=== PATIENT | female | born 1985 | race Caucasian/White ===

== ENCOUNTER 2022-02-11 08:13 | Inpatient (IN) ==
[2022-02-11] MEDS ORDERED: diphenhydrAMINE 50 MG/ML VIAL IV STA (08:29)
[2022-02-11] MEDS ORDERED: KETOROLAC TROMETHAMINE 15 MG/ML VIAL IV ONE (08:29)
[2022-02-11] MEDS ORDERED: SODIUM CHLORIDE 0.9% 1000ML 1,000 ML IV ONE (08:29)
[2022-02-11] MEDS ORDERED: PROCHLORPERAZINE 2 ML IV ONE (08:29)
--- NOTE | 2022-02-11 08:32 | Emergency Department Note ---
Impression & Plan Symptomatic anemia, Syncope, near, High serum chloride ED Provider Note NAME: RADHA NUNEZ AGE: 36 SEX: F : 1985 ARRIVES VIA: Walk-In INFORMANT: Patient ED PROVIDER(S): Ignacio Soto DO CHIEF COMPLAINT: near syncope HPI: Patient is a 36-year-old female who presents the ER for lightheadedness. She notes that she has been feeling weak and fatigued since August. Normally when she is up moving around this will occur several times a day. She denies a ny headache or change in vision. No chest pain. She does have some shortness of breath with feeling very fatigued when this occurs daily. Denies any belly pain, nausea, vomiting, or diarrhea. No dysuria, urgency, or frequency. She notes she was in the shower around 630-645 and felt lightheaded and almost passed out. She fell back against the wall but did not hit her head or neck and lowered her self to the ground. ROS: See above HPI for pertinent positives & negatives. A total of 10 systems reviewed and were otherwise negative. PAST MEDICAL HISTORY:See Below PAST SURGICAL HISTORY:See Below FAMILY HISTORY:See Below SOCIAL HISTORY:See Below HOME MEDICATIONS:See Below ALLERGIES:See Below VITALS:See Below PHYSICAL EXAMINATION: GENERAL: Sitting up in bed, alert, well appearing, well nourished, no distress, non-toxic EYE EXAM: normal conjunctiva. PERRL and EOM's intact. OROPHARYNX: no exudate, no erythema, lips, buccal mucosa, and tongue normal and mucous membranes are moist NECK: supple, no nuchal rigidity, no adenopathy, non-tender LUNGS: Clear to auscultation. Normal chest wall mechanics HEART: no murmurs, S1 normal and S2 normal RECTAL: hem neg ABDOMEN: abdomen soft, non-tender, normo-active bowel sounds, no masses, no rebound or guarding. UPPER EXTREMITIES: upper extremities are grossly normal. LOWER EXTREMITIES: No pitting edema. NEURO EXAM: Normal sensorium, cranial nerves II-XII intact, normal speech, no weakness of arms, no weakness of legs. No drift. Finger to nose intact. Gross sensation intact. Rapid alternating movements of upper extremities intact. [id number] intact. MEDICAL DECISION MAKING: Patient is a 36-year-old female who presents ER for near syncopal event. IV was established blood work was obtained. Hemoglobin was found to be 3.2. Rectal was heme-negative and performed with Hope RN at bedside by myself. Platelets were appropriate as well as white cells. D-dimer was negative. BMP with a chloride of 109. CO2 of 20. No elevation in BUN to suggest GI bleed. Troponin was negative. EKG nondiagnostic. Lipase TSH and alcohol were negative. COVID- negative. Patient was typed and crossed and ordered 4 units PRBCs. She was consented at bedside by myself. Patient was monitored closely discussed with ok otto for further work-up of her symptomatic anemia. Triage Nursing notes reviewed. Limited review of prior medical records performed Vital Signs: reviewed and remarkable for no significant abnormalities Differential diagnosis: Differential diagnosis includes etiologies such as vasovagal event, infection, hypoglycemia, electrolyte abnormalities, cardiac sources, intracerebral event, toxicologic, neurologic, as well as others were entertained. ER treatment provided: See below Diagnostics interpreted by me: ECG: Sinus rhythm rate 96 Normal axis No PVCs QTC 432 Cardiac Monitoring: An order was placed for continuous cardiac monitoring. The monitor shows a rate of 92 with sinus rhythm. Laboratory studies: As stated above and show below. Imaging studies: See below Consultation(s): Discussed with Dr. Jacqueline hernandez for further evaluation Procedures: none Critical Care: I have personally spent 35 minutes of critical care time in the direct management of this patient. This includes bedside care, interpretation of diagnostic studies, and testing, discussion with consultants, patient, and family members, and other required patient management activities. This 35 minutes is in excess of all separately billable procedures. Past Med/Surg History Social History Smoking Status: Never smoker Second Hand Exposure: No; Do You Dip or Chew Tobacco: No; Tobacco Cessation Education Requested by Patient: No Hx Alcohol Use: Yes Alcohol type: beer Hx Substance Use: No Preferred Language: Bahamian Communication Ability: Effective Consulting Technical Director Required: No Beliefs That Will Affect Care: None Current Living Situation: Significant Other Other Information That Helps Us Care for You: No Feels Safe at Home: Yes Safety Concerns: Feels Safe At This Time Assistive Devices: Contacts and Glasses Allergies Allergies Allergy/AdvReac Type Severity Reaction Status Date / Time No Known Allergies Allergy Unverified 02/11/22 11:10 Results & Data (ED) Vital Signs Vital Signs - 24 hr 02/11/22 08:21 02/11/22 09:10 02/11/22 09:20 Temperature 36.5 C Temperature Source Oral Pulse Rate 89 93 H 90 Respiratory Rate 18 12 17 Blood Pressure 124/62 Blood Pressure Mean 82 Pulse Oximetry 96 Oxygen Delivery Method Room Air Sepsis Recent Fever Within 48 Hours No Sepsis New/Unexplained Change in Mental Status No Sepsis Action Taken by Nursing No Action Required 02/11/22 09:30 02/11/22 09:40 02/11/22 09:50 Temperature Temperature Source Pulse Rate 84 113 H 105 H Respiratory Rate 18 22 16 Blood Pressure Blood Pressure Mean Pulse Oximetry Oxygen Delivery Method Sepsis Recent Fever Within 48 Hours Sepsis New/Unexplained Change in Mental Status Sepsis Action Taken by Nursing 02/11/22 10:00 02/11/22 10:08 02/11/22 10:08 Temperature Temperature Source Pulse Rate 91 H 92 H Respiratory Rate 16 12 Blood Pressure 119/80 Blood Pressure Mean 93 Pulse Oximetry Oxygen Delivery Method Sepsis Recent Fever Within 48 Hours Sepsis New/Unexplained Change in Mental Status Sepsis Action Taken by Nursing 02/11/22 10:10 02/11/22 10:20 02/11/22 10:30 Temperature Temperature Source Pulse Rate 83 96 H 93 H Respiratory Rate 16 17 19 Blood Pressure Blood Pressure Mean Pulse Oximetry 97 Oxygen Delivery Method Room Air Sepsis Recent Fever Within 48 Hours Sepsis New/Unexplained Change in Mental Status Sepsis Action Taken by Nursing 02/11/22 10:40 Temperature Temperature Source Pulse Rate 97 H Respiratory Rate 15 Blood Pressure Blood Pressure Mean Pulse Oximetry 94 Oxygen Delivery Method Room Air Sepsis Recent Fever Within 48 Hours Sepsis New/Unexplained Change in Mental Status Sepsis Action Taken by Nursing Laboratory Data Result diagrams: 02/11/22 10:43 02/11/22 08:59 Lab Results 02/11/22 02/11/22 02/11/22 Range/Units 08:59 08:59 08:59 WBC 6.45 (4.8-10.8) K/ul RBC 2.10 L (3.93-5.22) M/uL Hgb 3.3 L* (12.0-16.0) g/dl Hct 13.8 L* (34.1-44.9) % MCV 65.7 L (80.0-100.0) fL MCH 15.7 L (25.0-34.0) pg MCHC 23.9 L (32.0-36.0) g/dL RDW Std Deviation 52.7 H (36.4-46.3) fL RDW Coeff of Kenrick 22.6 H (11.5-14.5) % Plt Count 260 (130-400) K/uL MPV 10.2 (9.4-12.3) fL Immature Gran % (Auto) 0.5 % Neut % (Auto) 77.1 % Lymph % (Auto) 17.7 % [place] % (Auto) 4.0 % Eos % (Auto) 0.5 % Baso % (Auto) 0.2 % Neut # (Auto) 4.98 (1.4-6.5) K/uL Lymph # (Auto) 1.14 L (1.2-3.4) K/uL [place] # (Auto) 0.26 (0.24-0.82) K/uL Eos # (Auto) 0.03 (0-0.50) K/uL Baso # (Auto) 0.01 (0-0.2) K/uL Immature Gran # (Auto) 0.03 H (0.00-0.02) K/uL Absolute Nucleated RBC 0.06 H (0-0) K/uL Nucleated RBC % (auto) 0.9 % Polychromasia 1+ Hypochromasia Present Microcytosis Present Tear Drop Cells 1+ D-Dimer 330 (0-500) ug/L FEU Sodium 137 (136-145) mmol/L Potassium 3.5 (3.5-5.1) mmol/L Chloride 109 H (98-107) mmol/L Carbon Dioxide 20 L (21-32) mmol/L Anion Gap 8 (3-11) BUN 13 (6-23) mg/dl Creatinine 0.86 (0.6-1.2) mg/dl Est Cr Clr Drug Dosing 91.7 ml/min Est GFR ( Amer) 100.7 ml/min Est GFR (Non-Af Amer) 86.9 ml/min BUN/Creatinine Ratio 15.1 (10-20) Glucose 102 H (70-99(Fasting)) mg/dl Calcium 8.3 L (8.5-10.1) mg/dl Iron (35-150) mcg/dl TIBC Unsaturated IBC (155-355) mcg/dl Transferrin % Sat Ferritin (8-388) ng/ml Total Bilirubin 0.4 (0.2-1.0) mg/dl AST 23 (13-39) U/L ALT 16 (7-52) U/L Alkaline Phosphatase 72 (34-104) U/L Troponin I High Sens 11.0 (0-14) pg/ml Total Protein 5.8 L (6.0-8.3) gm/dl Albumin 3.6 (3.4-5.0) gm/dl Globulin 2.2 L (2.5-4.0) gm/dl Albumin/Globulin Ratio 1.6 (0.9-2) Lipase 21 (11-82) U/L TSH (0.300-4.500) uIu/ml Ethyl Alcohol mg/dL (<10.0) mg/dl Blood Type Blood Type Recheck Antibody Screen Crossmatch 02/11/22 02/11/22 02/11/22 Range/Units 08:59 08:59 10:11 WBC (4.8-10.8) K/ul RBC (3.93-5.22) M/uL Hgb (12.0-16.0) g/dl Hct (34.1-44.9) % MCV (80.0-100.0) fL MCH (25.0-34.0) pg MCHC (32.0-36.0) g/dL RDW Std Deviation (36.4-46.3) fL RDW Coeff of Kenrick (11.5-14.5) % Plt Count (130-400) K/uL MPV (9.4-12.3) fL Immature Gran % (Auto) % Neut % (Auto) % Lymph % (Auto) % [place] % (Auto) % Eos % (Auto) % Baso % (Auto) % Neut # (Auto) (1.4-6.5) K/uL Lymph # (Auto) (1.2-3.4) K/uL [place] # (Auto) (0.24-0.82) K/uL Eos # (Auto) (0-0.50) K/uL Baso # (Auto) (0-0.2) K/uL Immature Gran # (Auto) (0.00-0.02) K/uL Absolute Nucleated RBC (0-0) K/uL Nucleated RBC % (auto) % Polychromasia Hypochromasia Microcytosis Tear Drop Cells D-Dimer (0-500) ug/L FEU Sodium (136-145) mmol/L Potassium (3.5-5.1) mmol/L Chloride (98-107) mmol/L Carbon Dioxide (21-32) mmol/L Anion Gap (3-11) BUN (6-23) mg/dl Creatinine (0.6-1.2) mg/dl Est Cr Clr Drug Dosing ml/min Est GFR ( Amer) ml/min Est GFR (Non-Af Amer) ml/min BUN/Creatinine Ratio (10-20) Glucose (70-99(Fasting)) mg/dl Calcium (8.5-10.1) mg/dl Iron (35-150) mcg/dl TIBC Unsaturated IBC (155-355) mcg/dl Transferrin % Sat Ferritin (8-388) ng/ml Total Bilirubin (0.2-1.0) mg/dl AST (13-39) U/L ALT (7-52) U/L Alkaline Phosphatase (34-104) U/L Troponin I High Sens (0-14) pg/ml Total Protein (6.0-8.3) gm/dl Albumin (3.4-5.0) gm/dl Globulin (2.5-4.0) gm/dl Albumin/Globulin Ratio (0.9-2) Lipase (11-82) U/L TSH 2.502 (0.300-4.500) uIu/ml Ethyl Alcohol mg/dL < 10.0 (<10.0) mg/dl Blood Type O Positive Blood Type Recheck Antibody Screen NEGATIVE Crossmatch See Detail 02/11/22 02/11/22 02/11/22 Range/Units 10:28 10:43 10:43 WBC (4.8-10.8) K/ul RBC (3.93-5.22) M/uL Hgb 3.2 L* (12.0-16.0) g/dl Hct 13.0 L* (34.1-44.9) % MCV (80.0-100.0) fL MCH (25.0-34.0) pg MCHC (32.0-36.0) g/dL RDW Std Deviation (36.4-46.3) fL RDW Coeff of Kenrick (11.5-14.5) % Plt Count (130-400) K/uL MPV (9.4-12.3) fL Immature Gran % (Auto) % Neut % (Auto) % Lymph % (Auto) % [place] % (Auto) % Eos % (Auto) % Baso % (Auto) % Neut # (Auto) (1.4-6.5) K/uL Lymph # (Auto) (1.2-3.4) K/uL [place] # (Auto) (0.24-0.82) K/uL Eos # (Auto) (0-0.50) K/uL Baso # (Auto) (0-0.2) K/uL Immature Gran # (Auto) (0.00-0.02) K/uL Absolute Nucleated RBC (0-0) K/uL Nucleated RBC % (auto) % Polychromasia Hypochromasia Microcytosis Tear Drop Cells D-Dimer (0-500) ug/L FEU Sodium (136-145) mmol/L Potassium (3.5-5.1) mmol/L Chloride (98-107) mmol/L Carbon Dioxide (21-32) mmol/L Anion Gap (3-11) BUN (6-23) mg/dl Creatinine (0.6-1.2) mg/dl Est Cr Clr Drug Dosing ml/min Est GFR ( Amer) ml/min Est GFR (Non-Af Amer) ml/min BUN/Creatinine Ratio (10-20) Glucose (70-99(Fasting)) mg/dl Calcium (8.5-10.1) mg/dl Iron < 10 L (35-150) mcg/dl TIBC TNP Unsaturated IBC 495 H (155-355) mcg/dl Transferrin % Sat TNP Ferritin 1.8 L (8-388) ng/ml Total Bilirubin (0.2-1.0) mg/dl AST (13-39) U/L ALT (7-52) U/L Alkaline Phosphatase (34-104) U/L Troponin I High Sens (0-14) pg/ml Total Protein (6.0-8.3) gm/dl Albumin (3.4-5.0) gm/dl Globulin (2.5-4.0) gm/dl Albumin/Globulin Ratio (0.9-2) Lipase (11-82) U/L TSH (0.300-4.500) uIu/ml Ethyl Alcohol mg/dL (<10.0) mg/dl Blood Type Blood Type Recheck O Positive Antibody Screen Crossmatch Administered Medications Discontinued Medications Diphenhydramine HCl (Diphenhydramine 50 Mg/Ml Vial) 50 mg IV NOW STA Stop: 02/11/22 08:30 Last Admin: 02/11/22 08:50 Dose: Not Given Documented By: HG Sodium Chloride (Nss 1000ml) 1,000 mls @ 999 mls/hr IV .Q1H1M ONE Stop: 02/11/22 09:29 Last Admin: 02/11/22 09:23 Dose: 999 mls/hr Documented By: HG Prochlorperazine (Compazine) 2 mls @ 1 mls/min IV ONE ONE Stop: 02/11/22 08:30 Last Admin: 02/11/22 08:50 Dose: Not Given Documented By: HG Ketorolac Tromethamine (Ketorolac Tromethamine 15 Mg/Ml Vial) 15 mg IV NOW ONE Stop: 02/11/22 08:30 Last Admin: 02/11/22 08:50 Dose: Not Given Documented By: MOE Imaging Data Radiologist's Impression: Chest X-Ray 02/11/22 08:36 SINGLE VIEW CHEST CLINICAL HISTORY: Atypical chest pain. FINDINGS: An AP, portable, upright chest radiograph is obtained. No prior studies are available for comparison at the time of dictation. A hiatal hernia is noted. The cardiomediastinal silhouette is unremarkable. The lungs and pleural spaces are clear. No pneumothorax is seen. The bony thorax is grossly intact. IMPRESSION: 1. No active disease in the chest. 2. Hiatal hernia. ACT 112: Negative or not required by law. Electronically signed by: Moustapha Ruelas M.D. 02/11/2022 8:58 AM Discharge Plan Visit Data Chief Complaint: Weakness Stated Complaint: PASSED OUT, FATIGUE, SHAKY ED Provider: Ignacio Soto Discharge Problem: Symptomatic anemia, Syncope, near, High serum chloride Discharge Instructions Interventions: ED Discharge Assessment Last Done: 02/11/22 11:21
--- NOTE | 2022-02-11 08:59 | XRay Report ---
SINGLE VIEW CHEST CLINICAL HISTORY: Atypical chest pain. FINDINGS: An AP, portable, upright chest radiograph is obtained. No prior studies are available for c omparison at the time of dictation. A hiatal hernia is noted. The cardiomediastinal silhouette is unr emarkable. The lungs and pleural spaces are clear. No pneumothorax is seen. The bony thorax is grossl y intact. IMPRESSION: 1. No active disease in the chest. 2. Hiatal hernia. ACT 112: Negative or not required by law. Electronically signed by: Moustapha Ruelas M.D. 02/11/2022 8:58 AM
[2022-02-11 09:29] LABS: D Dimer 330 ug/L FEU (0-500)
[2022-02-11 09:52] LABS: Albumin Globulin Ratio 1.6 (0.9-2); Albumin Level 3.6 gm/dl (3.4-5.0); BUN Creatinine Ratio 15.1 (10-20); Bilirubin,Total 0.4 mg/dl (0.2-1.0); Calcium 8.3 mg/dl (8.5-10.1); Creatinine Clr Calc Pharmacy 91.7 ml/min; Est GFR (African American) 100.7 ml/min; Est GFR (Non-African American) 86.9 ml/min; Globulin 2.2 gm/dl (2.5-4.0); Potassium 3.5 mmol/L (3.5-5.1); Total Protein 5.8 gm/dl (6.0-8.3)
[2022-02-11] MEDS ORDERED: SODIUM CHLORIDE 0.9% 250 ML IV PRN (10:03)
[2022-02-11 10:20] LABS: Hematocrit (blood only) 13.8 % (34.1-44.9); Hemoglobin 3.3 g/dl (12.0-16.0); Mean Corpuscular Hemoglobin 15.7 pg (25.0-34.0); Mean Corpuscular Hgb Conc 23.9 g/dL (32.0-36.0); Mean Corpuscular Volume 65.7 fL (80.0-100.0); Mean Platelet Volume 10.2 fL (9.4-12.3); Nucleated RBC # (auto) 0.06 K/uL (0-0); Nucleated RBC % (auto) 0.9 %; Platelet Count 260 K/uL (130-400); RDW Coefficient of Variation 22.6 % (11.5-14.5); RDW Standard Deviation 52.7 fL (36.4-46.3); White Blood Count 6.45 K/ul (4.8-10.8)
[2022-02-11 10:28] LABS: Basophils # (auto) 0.01 K/uL (0-0.2); Basophils % (auto) 0.2 %; Eosinophils # (auto) 0.03 K/uL (0-0.50); Eosinophils % (auto) 0.5 %; Hypochromasia Present; Immature Granulocytes # (auto) 0.03 K/uL (0.00-0.02); Immature Granulocytes % (auto) 0.5 %; Lymphocytes # (auto) 1.14 K/uL (1.2-3.4); Lymphocytes % (auto) 17.7 %; Microcytosis Present; Monocytes # (auto) 0.26 K/uL (0.24-0.82); Neutrophils # (auto) 4.98 K/uL (1.4-6.5); Neutrophils % (auto) 77.1 %; Polychromasia 1+; Tear Drop Cells 1+
--- NOTE | 2022-02-11 10:32 | History & Physical Report ---
Date of Service February 11, 2022 Assessment & Plan (1) Anemia: Plan: -Hgb currently at 3.3 -admit to PCU/tele -Patient is currently afebrile, hemodynamically stable, and stable on RA -No signs of active bleeding, she was heme negative on HANNA[place] in the ED -At this time it appears the patient's anemia and symptoms of significant weakness/fatigue are most associate with chronic iron deficiency anemia, but other causes such as myelodysplastic syndrome, heavy menstrual periods, and lead poisoning cannot be ruled out at this time -Patient's CBC is showing a microcytic/hypochromic anemia, will continue the workup with iron studies, B12/folate levels, lead level, obtaining prior to first unit of PRBC's -Will obtain echo with patient's murmur and no known murmur previously, could be due to her current anemia -Will give 20 mg IV lasix and 2g IV calcium gluconate after the second unit of PRBCs, patient was educated on iwona signs/symptoms associated with transfusions and when to notify her nurse -Patient has been ordered 4 units of PRBC's by the ED (blood consent obtained), will get a post transfusion H&H after the 4th unit is complete and continue to monitor H&H q6h overnight -If patient is doing well tomorrow could start givnig IV venofer infusions to stabilize iron levels if workup continues to indicated iron deficiency anemia and could then be discharged on oral Iron with close follow-up -AM BMP (2) Generalized weakness: Plan: -Likely due to her current anemia and Hgb of 3.3 -Generalized weakness has been ongoing for the past 6 months and worsening -No actual LOC this am and no acute neuro defects on exam -Continue to monitor for improvement as her anemia is treated (3) Alcohol abuse: Plan: -States she normally drinks about 3-4 cans of High Noon (alcoholic [place]) daily, last drink was 02/08/22 -No signs of alcohol withdrawal at this time, patient denies previous issues with withdrawal when she stops drinking -Will continue to monitor for signs of withdrawal, communication order placed to contact covering provider if signs/symptoms of withdrawal are noted so CWSS can be initiated (4) Murmur: Plan: -Noted on exam today, patient denies a history of heart murmur -Could be due to her current severe anemia, troponin negative, no chest pain, and no ECG changes noted -Will obtain TTE to further evaluate -Continue to monitor with adequate treatment of her anemia Plan The patient was seen with an discussed with Dr. Jackson at the time of admission History of Present Illness Chief Complaint: Weakness Primary Care Provider: NO PCP Cee Amaro is a 36-year-old female scented with the ER for lightheadedness with progressive weakness and fatigue since 08/2019. [place] lightheaded this morning and nearly passed out, slid down the wall and lowered her self to the ground but did not pass out completely and did not hit her head/neck. Patient Seen/HPI performed in room with Rajendra Herrera PA-C present Intermittent heavy periods alternating with light periods. Heme negative. 3-4, 4-6 drinks daily. [place] lightheaded this morning and passed out slowly in the shower. [place] poor since covid in august and slowly worsening since then. Today was the first day that she actually passed out completely. Fatigue is worsened with exertion and small amounts of activity such as taking a shower and going up stairs have been ahrd lately and 'arms and legs feel like cement, and get a little lightheaded/di zzy with some shortness of breath' which improved with sitting down and rest. Endorses some anxiety which also gives her some feeling of difficulty breathing in the past. Today is the first time she passed out. [place] like her vision faded and went white. She slid down the wall, did not go completely out but could see and was so weak she had to slide down to the floor. No shaking, tensing, or 'seizure' like contractions, but did feel very shakey overall after and had a mild headache with some nausea. No vomiting. Denies fevers, chills, sweats, chest pain, chest pressure, abdominal pain, pain with urination, no blood in urine/stool, no dark black stool/melena. Eating normally. - Started a Vegan diet in the last week, rotates in for a month or two every few months out of the year. Prior to that did eat red meat, chicken, and fish. Menstrual periods: last 3 weeks ago. Was actually fairly light. Since young alternates between heavy and light. usually last 4-5 days. Does not take chronic/prescription medications .Denies DM. Had iron studies which were normal 2 years ago. No vitamin supplements. House is >100 years old. [place] is fairly recent. with no symptoms. Not sure if any problems with lead, but does not think so No tobacco, no vaping use EtoH daily, 2-3 drinks 'high noons'. Used to drink shots but has cut back in the last few months. no EtoH over the past weekend. No shakes/chills/withdrawal sx Last well woman many years ago. no fibroids. Physical exam: Obvious pallor is present. Mild tachypnea with systolic murmur. CTA B. No lower extremity edema. No abdominal tenderness. CODE STATUS: Full Code. Surrogate DM Humberto Fox [phone]. Plan: Shortness of breath/weakness/presyncope 2/2 severe symptomatic anemia Hemoglobin on admission 3.3. Patient compensated, historically sounds like gradual downtrend. Does have alternating heavy menstrual periods, but these have not changed in the last decade. No bleeding in between menstrual periods. Last menstrual period 3 weeks ago and was a normal/light 1. Periods usually last 4 to 5 days and have not changed recently. Occult blood negative, no GI bleeding/melena on patient history Patient does alternate a couple months out of the year with a vegan diet. Iron studies 2 years ago reportedly normal House is over 100 years old, no known pealing/CHP leg pain or exposure, lives in house with her and has not had symptoms Lead level pending, iron level pending - peripheral smear pending to evaluate for basophilic stippling given old house/paint and lead will be a send out and take some time to return Transfused 4 units PRBCs for profound anemia. After 2 units give 20 of Lasix, 1 g calcium gluconate. Follow for fluid overload as chronic process and patient is compensated Systolic murmur present, echo pending. Suspect nonvalvular turbulent/low viscosity flow murmur Troponin normal, EKG without acute ST segment change Creatinine normal, 0.86 on admission B12, folate levels pending Daily alcohol intake: Patient reports 34 drinks per day, last intake was Friday (3 days ago). Reports has had consecutive alcohol free days with no shakes, diaphoresis, tremors, withdrawal symptoms. Does not feel any symptoms of withdrawal. Will observe cautiously at this point, if diaphoresis/tremors or other signs of alcohol withdrawal develop initiate it AWSS protocol, will defer active protocol at this time Denies other chronic medical problems, no chronic medications, no medication allergies Allergies Allergy/AdvReac Type Severity Reaction Status Date / Time No Known Allergies Allergy Unverified 02/11/22 11:10 Past Med/Surg History Social History Smoking Status: Never smoker Feels Safe at Home: Yes Review of Systems Review of Systems: Denies current fever, chills, headache, changes in vision, hearing, taste, and smell, chest pain, SOB, cough, abdominal pain, nausea, vomit ing, diarrhea, hematemesis, melena, dysuria, hematuria All systems have been reviewed and are otherwise negative. Physical Exam Physical Exam: Physical Exam: General: In no acute distress, stated age, well-nourished, good hygiene HEENT: Normocephalic, atraumatic, no scleral icterus, pupils around round, symmetrical, and reactive to light, pale palpebral conjunctivae, moist mucus membranes, trachea midline, no thyromegaly Chest/Pulm: No respiratory distress, symmetrical chest expansion, clear breath sounds throughout Cardiac: RRR, systolic murmur noted Abdomen: Negative for ascites and bruising, normoactive bowel sounds, soft, non-tender to palpation throughout Musculoskeletal: Symmetrical and without signs of acute trauma, upper and lower extremities with full ROM, no atrophy, spasticity, or flaccidity Extremities: Radial, dorsalis pedis, and posterior tibial pulses are intact and symmetrical, no edema noted in the BL LE's Skin: Pale,Warm, dry, no rashes , lesions, or scars noted Neuro: Alert and oriented to person, place, month, year, and president, no focal defects, CN II-XII tested and intact, finger to nose test negative, no tremors noted Psych: No acute distress, calm and cooperative during the exam Results & Data Results & Data ([facility] [place]) Vital Signs (Past 12 Hours) Vital Signs Temp Pulse Resp BP Pulse Ox O2 Del Method 02/11/22 10:20 96 H 17 02/11/22 10:10 83 16 97 Room Air 02/11/22 10:08 119/80 02/11/22 10:08 92 H 12 02/11/22 10:00 91 H 16 02/11/22 09:50 105 H 16 10/03/22 09:40 113 H 22 02/11/22 09:30 84 18 02/11/22 09:20 90 17 02/11/22 09:10 93 H 12 02/11/22 08:21 36.5 C 89 18 124/62 96 Room Air Laboratory Results Abnormal lab results 02/11/22 02/11/22 02/11/22 Range/Units 08:59 08:59 10:11 RBC 2.10 L (3.93-5.22) M/uL Hgb 3.3 L* (12.0-16.0) g/dl Hct 13.8 L* (34.1-44.9) % MCV 65.7 L (80.0-100.0) fL MCH 15.7 L (25.0-34.0) pg MCHC 23.9 L (32.0-36.0) g/dL RDW Std Deviation 52.7 H (36.4-46.3) fL RDW Coeff of [place] 22.6 H (11.5-14.5) % Lymph # (Auto) 1.14 L (1.2-3.4) K/uL Immature Gran # (Auto) 0.03 H (0.00-0.02) K/uL Absolute Nucleated RBC 0.06 H (0-0) K/uL Chloride 109 H (98-107) mmol/L Carbon Dioxide 20 L (21-32) mmol/L Glucose 102 H (70-99(Fasting)) mg/dl Calcium 8.3 L (8.5-10.1) mg/dl Total Protein 5.8 L (6.0-8.3) gm/dl Globulin 2.2 L (2.5-4.0) gm/dl Crossmatch See Detail Diagnostic Findings Chest X-Ray 02/11/22 08:36 SINGLE VIEW CHEST CLINICAL HISTORY: Atypical chest pain. FINDINGS: An AP, portable, upright chest radiograph is obtained. No prior studies are available for comparison at the time of dictation. A hiatal hernia is noted. The cardiomediastinal silhouette is unremarkable. The lungs and pleural spaces are clear. No pneumothorax is seen. The bony thorax is grossly intact. IMPRESSION: 1. No active disease in the chest. 2. Hiatal hernia. ACT 112: Negative or not required by law. Electronically signed by: Moustapha Ruelas M.D. 02/11/2022 8:58 AM ECG Additional Comments: Poor data quality, interpretation may be adversely affected Normal sinus rhythm Normal ECG No previous ECGs available Code Status & VTE Plan Code Status FUll Code VTE Prophylaxis Plan VTE Prophylaxis will be ordered: Yes Reason for no VTE drug order: Contraindicated Supervising Physician Co-Signing Physician Notes Patient seen and examined, chart reviewed, case discussed with Rajendra Herrera PA-C and I agree with the assessment and plan as above except as otherwise noted Labs and images reviewed Cee Amaro is a 36-year-old female scented with the ER for lightheadedness with progressive weakness and fatigue since 08/2019. [place] lightheaded this morning and nearly passed out, slid down the wall and lowered her self to the ground but did not pass out completely and did not hit her head/neck. Patient Seen/HPI performed in room with Rajendra Herrera PA-C present Intermittent heavy periods alternating with light periods. Heme negative. 3-4, 4-6 drinks daily. [place] lightheaded this morning and passed out slowly in the shower. [place] poor since covid in august and slowly worsening since then. Today was the first day that she actually passed out completely. Fatigue is worsened with exertion and small amounts of activity such as taking a shower and going up stairs have been ahrd lately and 'arms and legs feel like cement, and get a little lightheaded/dizzy with some shortness of breath' which improved with sitting down and rest. Endorses some anxiety which also gives her some feeling of difficulty breathing in the past. Today is the first time she passed out. [place] like her vision faded and went white. She slid down the wall, did not go completely out, clarifies she never lost complete conciousness but felt close but could see and was so weak she had to slide down to the floor. No shaking, tensing, or 'seizure' like contractions, but did feel very shakey overall after and had a mild headache with some nausea. No vomiting. Denies fevers, chills, sweats, chest pain, chest pressure, abdominal pain, pain with urination, no blood in urine/stool, no dark black stool/melena. Eating normally. - Started a Vegan diet in the last week, rotates in for a month or two every few months out of the year. Prior to that did eat red meat, chicken, and fish. Menstrual periods: last 3 weeks ago. Was actually fairly light. Since young alt ernates between heavy and light. usually last 4-5 days. Does not take chronic/prescription medications .Denies DM. Had iron studies which were normal 2 years ago. No vitamin supplements. House is >100 years old. [place] is fairly recent. with no symptoms. Not sure if any problems with lead, but does not think so No tobacco, no vaping use EtoH daily, 2-3 drinks 'high noons'. Used to drink shots but has cut back in the last few months. no EtoH over the past weekend. No shakes/chills/withdrawal sx Last well woman many years ago. no fibroids. Physical exam: Obvious pallor is present. Mild tachypnea with systolic murmur. CTA B. No lower extremity edema. No abdominal tenderness. CODE STATUS: Full Code. Surrogate DM Humberto Fox [phone]. Plan: Shortness of breath/weakness/presyncope 2/2 severe symptomatic anemia Hemoglobin on admission 3.3. Patient compensated, historically sounds like gradual downtrend. Does have alternating heavy menstrual periods, but these have not changed in the last decade. No bleeding in between menstrual periods. Last menstrual period 3 weeks ago and was a normal/light 1. Periods usually last 4 to 5 days and have not changed recently. Occult blood negative, no GI bleeding/melena on patient history Patient does alternate a couple months out of the year with a vegan diet. Iron studies 2 years ago reportedly normal House is over 100 years old, no known pealing/CHP leg pain or exposure, lives in house with her and has not had symptoms Lead level pending, iron level pending - peripheral smear pending to evaluate for basophilic stippling given old house/paint and lead will be a send out and take some time to return Transfused 4 units PRBCs for profound anemia. After 2 units give 20 of Lasix, 1 g calcium gluconate. Follow for fluid overload as chronic process and patient is compensated Systolic murmur present, echo pending. Suspect nonvalvular turbulent/low viscosity flow murmur Troponin normal, EKG without acute ST segment change Creatinine normal, 0.86 on admission B12, folate levels pending Daily alcohol intake: Patient reports 34 drinks per day, last intake was Friday (3 days ago). Reports has had consecutive alcohol free days with no shakes, diaphoresis, tremors, withdrawal symptoms. Does not feel any symptoms of withdrawal. Will observe cautiously at this point, if diaphoresis/tremors or other signs of alcohol withdrawal develop initiate it AWSS protocol, will defer active protocol at this time Denies other chronic medical problems, no chronic medications, no medication allergies Agree with plan as above PG Care Time/CCT Total # of Minutes Spent Total Time Spent with Patient: Total time spent is greater than 50% in coordination of care (as documented) at patient's floor/unit and/or counseling patient: [place] [address] Initial Inpt Care Lvl 3 Patient Type New History Comprehensive Exam Comprehensive Medical Decision Making High Complexity Diagnoses Anemia D64.9 Generalized weakness R53.1 Alcohol abuse F10.10 Murmur R01.1
[2022-02-11 11:22] LABS: Hemoglobin 3.2 g/dl (12.0-16.0)
[2022-02-11 11:43] LABS: Iron < 10 mcg/dl (35-150)
[2022-02-11 11:48] LABS: Ferritin 1.8 ng/ml (8-388)
[2022-02-11 11:49] LABS: Unsaturated Iron Binding Cap 495 mcg/dl (155-355)
[2022-02-11] MEDS ORDERED: STAT IV STA (11:50)
[2022-02-11] MEDS ORDERED: FUROSEMIDE INJ 20 MG/2 ML VIAL IV ONE ×2 (14:00→16:53)
[2022-02-11] MEDS ORDERED: CALCIUM GLUCONATE 10% 2,000 MG in DEXTROSE 5% 50 ML IV ONE (14:00)
[2022-02-11 14:13] LABS: Folate (Folic Acid) 6.33 ng/ml (>5.38)
--- NOTE | 2022-02-11 15:01 | XCELERA ---
[id number]
--- NOTE | 2022-02-11 18:01 | Electrocardiogram Report ---
Test Reason : Blood Pressure : / mmHG Vent. Rate : 096 BPM Atrial Rate : 096 BPM P-R Int : 142 ms QRS Dur : 074 ms QT Int : 342 ms P-R-T Axes : 039 043 038 degrees QTc Int : 432 ms Poor data quality, interpretation may be adversely affected Normal sinus rhythm Normal ECG No previous ECGs available Confirmed by Viktor Valero ([id number]) on 02/11/2022 6:01:02 PM Referred By: REFERRED SELF Confirmed By:Rodrigo Valero
[2022-02-11] MEDS: ACETAMINOPHEN 325 MG TAB PO PRN (22:05)
[2022-02-12 00:12] LABS: Hematocrit (blood only) 27.5 % (34.1-44.9); Hemoglobin 8.4 g/dl (12.0-16.0)
[2022-02-12 05:49] LABS: Hematocrit (blood only) 29.8 % (34.1-44.9); Hemoglobin 9.2 g/dl (12.0-16.0)
[2022-02-12 06:17] LABS: BUN Creatinine Ratio 12.5 (10-20); Calcium 8.4 mg/dl (8.5-10.1); Creatinine Clr Calc Pharmacy 89.4 ml/min; Est GFR (Non-African American) 84.5 ml/min; Potassium 3.4 mmol/L (3.5-5.1)
[2022-02-12] MEDS ORDERED: CYANOCOBALAMIN 1000 MCG/ML VIAL IM ONE (07:59)
[2022-02-12] MEDS ORDERED: POTASSIUM CHLORIDE 20 MEQ/15 ML UDC PO STA (08:01)
[2022-02-12] MEDS ORDERED: POTASSIUM CHLORIDE CRTAB 20 MEQ TABCR PO STA (08:23)
[2022-02-12] MEDS ORDERED: Nursing to Pharmacy Communication SCH (08:30)
[2022-02-12] MEDS: FOLIC ACID 1 MG TAB PO SCH (08:34)
[2022-02-12] MEDS ORDERED: IRON SUCROSE 400 MG in SODIUM CHLORIDE 0.9% 250 ML IV ONE (09:00)
[2022-02-12 11:49] LABS: Hematocrit (blood only) 28.5 % (34.1-44.9); Hemoglobin 8.8 g/dl (12.0-16.0)
--- NOTE | 2022-02-12 13:15 | Hospitalist Progress Note ---
Date of Service February 12, 2022 Assessment & Plan (1) Anemia: Plan: Severe symptomatic anemia, chronic due to iron deficiency Admitting hemoglobin 3.3 Appropriate rise to 8.4, 9.2/8.8 on recheck Iron studies with undetectable iron, profound iron depletion. Patient has some mildly heavy periods, but these are regular last 3 to 5 days and she has no bleeding/spotting in between periods. She eats a vegan diet several months out of the year. No GI bleeding Patient was doing well until she became so fatigued that she slid down the wall, but was otherwise hemodynamically stable. Slow bleed with time to compensate. Feels much better after infusion Appropriate rise with blood, received Venofer 400 mg today and would complete at least 300 mg tomorrow. After this continue oral iron q. OD, B12 daily versus IM shots, and outpatient follow-up with repeat CBC. May benefit from additional IV iron as outpatient, however will load to as close as 1 g as possible before discharge Did receive Lasix and calcium gluconate after second unit of RBCs, no signs of volume overload (2) Generalized weakness: Plan: Greatly improved following transfusion -Likely due to her current anemia and Hgb of 3.3 -Generalized weakness has been ongoing for the past 6 months and worsening -No actual LOC this am and no acute neuro defects on exam -Continue to monitor for improvement as her anemia is treated (3) Alcohol abuse: Plan: -States she normally drinks about 3-4 cans of High Noon (alcoholic [place]) daily, last drink was 02/08/22 -No signs of alcohol withdrawal at this time, patient denies previous issues with withdrawal when she stops drinking -Will continue to monitor for signs of withdrawal, communication order placed to contact covering provider if signs/symptoms of withdrawal are noted so CWSS can be initiated (4) Murmur: Plan: Noted on admission, improved following blood transfusion. Suspect low viscosity flow murmur. Echo with normal LV SF and no valvular disease -Could be due to her current severe anemia, troponin negative, no chest pain, and no ECG changes noted -Continue to monitor with adequate treatment of her anemia (5) B12 deficiency: (6) Iron deficiency anemia: Admission and Anticipated Discharge Date Admission Date: February 11, 2022 Subjective Seen at bedside, feeling greatly improved. No lightheadedness, dizziness, chest pain, chest pressure, shortness of breath today. Receiving iron infusion high- dose this morning tolerating well. Also received IM B12 this morning. Discussed future management follow-up, patient agreeable to this. Given severe anemia and undetectable iron levels will complete least 1 additional day of iron, anticipate discharge tomorrow morning after iron infusion is complete. Patient agreeable to this Review of Systems Review of Systems: All systems reviewed & are unremarkable except as noted in Subjective Physical Exam Physical Exam: General: A&Ox3. NAD. Cooperative. Pallor improved HEENT: Atraumatic, normocephalic. Vision/hearing intact Pulm: CTAB A&P. -wheezes, -rales, -rhonchi. Symmetrical chest rise. No increase in work of breathing. No respiratory distress. Cardiac: RRR, -mrg. Radial pulses intact and symmetrical. Abdominal: Nontender, nondistended, soft. BS present. Results & Data Results & Data ([facility]) Vital Signs (Past 12 Hours) Vital Signs Temp Pulse Pulse Resp BP BP Pulse Ox 02/12/22 11:01 36.6 C 73 18 120/86 96 02/12/22 10:50 86 21 139/89 96 02/12/22 10:15 75 13 123/81 97 02/12/22 10:01 77 15 127/87 98 02/12/22 09:45 73 19 118/76 99 02/12/22 09:41 80 19 136/82 98 02/12/22 09:30 82 23 130/85 100 02/12/22 09:15 72 19 117/84 100 02/12/22 09:00 72 17 152/83 H 99 02/12/22 08:55 77 16 133/90 100 02/12/22 08:50 78 16 127/85 99 02/12/22 08:45 78 22 129/92 97 02/12/22 08:40 79 15 139/87 02/12/22 07:01 77 02/12/22 07:20 37.1 C 75 16 127/84 96 02/12/22 02:54 36.6 C 72 18 113/68 96 O2 Del Method 02/12/22 11:01 Room Air 02/12/22 10:50 Room Air 02/12/22 10:15 Room Air 02/12/22 10:01 Room Air 02/12/22 09:45 Room Air 02/12/22 09:41 Room Air 02/12/22 09:30 Room Air 02/12/22 09:15 02/12/22 09:00 Room Air 02/12/22 08:55 Room Air 02/12/22 08:50 Room Air 02/12/22 08:45 Room Air 02/12/22 08:40 Room Air 02/12/22 07:01 02/12/22 07:20 Room Air 02/12/22 02:54 PG Care Time/CCT Total # of Minutes Spent Total Time Spent with Patient: Total time spent is greater than 50% in coordination of care (as documented) at patient's floor/unit and/or counseling patient: Coding Level of Care Code 00130 Subseq Hosp Care Lvl 2 Diagnoses Anemia D64.9 Generalized weakness R53.1 Alcohol abuse F10.10 Murmur R01.1 B12 deficiency E53.8 Iron deficiency anemia D50.9
[2022-02-13] MEDS: ACETAMINOPHEN 325 MG TAB PO PRN (00:24)
[2022-02-13 06:40] LABS: Basophils % (auto) 1.3 %; Eosinophils # (auto) 0.14 K/uL (0-0.50); Eosinophils % (auto) 1.8 %; Hematocrit (blood only) 28.7 % (34.1-44.9); Hemoglobin 8.7 g/dl (12.0-16.0); Immature Granulocytes # (auto) 0.22 K/uL (0.00-0.02); Immature Granulocytes % (auto) 2.8 %; Lymphocytes # (auto) 1.84 K/uL (1.2-3.4); Lymphocytes % (auto) 23.1 %; Mean Corpuscular Hemoglobin 22.8 pg (25.0-34.0); Mean Corpuscular Hgb Conc 30.3 g/dL (32.0-36.0); Mean Corpuscular Volume 75.3 fL (80.0-100.0); Monocytes # (auto) 0.54 K/uL (0.24-0.82); Monocytes % (auto) 6.8 %; Neutrophils # (auto) 5.11 K/uL (1.4-6.5); Neutrophils % (auto) 64.2 %; Nucleated RBC # (auto) 0.14 K/uL (0-0); Nucleated RBC % (auto) 1.8 %; Platelet Count 208 K/uL (130-400); RDW Coefficient of Variation 23.1 % (11.5-14.5); RDW Standard Deviation 60.7 fL (36.4-46.3); Red Blood Count 3.81 M/uL (3.93-5.22); White Blood Count 7.95 K/ul (4.8-10.8)
[2022-02-13 07:10] LABS: BUN Creatinine Ratio 14.8 (10-20); Calcium 8.2 mg/dl (8.5-10.1); Creatinine Clr Calc Pharmacy 96.1 ml/min; Est GFR (African American) 108.3 ml/min; Est GFR (Non-African American) 93.4 ml/min; Potassium 3.7 mmol/L (3.5-5.1)
[2022-02-13 07:15] LABS: Anisocytosis Present; Echinocytes 1+; Microcytosis Present; Ovalocytes 1+; Polychromasia 2+
--- NOTE | 2022-02-13 07:32 | Hospitalist Progress Note ---
Date of Service February 13, 2022 Assessment & Plan (1) Anemia: Plan: Severe symptomatic anemia, acute on chronic due to iron deficiency Admitting hemoglobin 3.3 4 u PRBC appropriate rise to 8.4, now stable Iron studies with undetectable iron, profound iron depletion. Patient has some mildly heavy periods, but these are regular last 3 to 5 days and she has no bleeding/spotting in between periods. She eats a vegan diet several months out of the year. No GI bleeding Patient was doing well until she became so fatigued that she slid down the wall, but was otherwise hemodynamically stable. Slow bleed with time to compensate. Feels much better after infusion Appropriate rise with blood, received Venofer 400 mg today and would complete at least 300 mg tomorrow. After this continue oral iron q. OD, B12 daily versus IM shots, and outpatient follow-up with repeat CBC. May benefit from additional IV iron as outpatient, however will load to as close as 1 g as possible before discharge Did receive Lasix and calcium gluconate after second unit of RBCs, no signs of volume overload (2) Generalized weakness: Plan: Greatly improved following transfusion -Likely due to her current anemia and Hgb of 3.3 -Generalized weakness has been ongoing for the past 6 months and worsening -No actual LOC this am and no acute neuro defects on exam -Continue to monitor for improvement as her anemia is treated (3) Alcohol abuse: Plan: -States she normally drinks about 3-4 cans of High Noon (alcoholic [place]) sushant y, last drink was 02/08/22 -No signs of alcohol withdrawal at this time, patient denies previous issues with withdrawal when she stops drinking -Will continue to monitor for signs of withdrawal (4) Murmur: Plan: Noted on admission, improved following blood transfusion. Suspect low viscosity flow murmur. Echo with normal LV SF and no valvular disease -Could be due to her current severe anemia, troponin negative, no chest pain, and no ECG changes noted (5) B12 deficiency: Plan: B12 is low on admission 152 (180 is low normal) (6) Iron deficiency anemia: Admission and Anticipated Discharge Date Admission Date: February 11, 2022 Results & Data Results & Data ([facility]) Vital Signs (Past 12 Hours) Vital Signs Temp Pulse Pulse Resp BP BP Pulse Ox 02/13/22 04:18 97.9 F 82 16 107/71 95 10/04/22 23:00 78 02/12/22 23:05 98.4 F 78 18 120/72 97 02/12/22 19:40 98.6 F 86 18 116/77 98 O2 Del Method 02/13/22 04:18 Room Air 02/12/22 23:00 02/12/22 23:05 Room Air 02/12/22 19:40 Room Air PG Care Time/CCT Total # of Minutes Spent Total Time Spent with Patient: Total time spent is greater than 50% in coordination of care (as documented) at patient's floor/unit and/or counseling patient: Coding Diagnoses Anemia D64.9 Generalized weakness R53.1 Alcohol abuse F10.10 Murmur R01.1 B12 deficiency E53.8 Iron deficiency anemia D50.9
[2022-02-13] MEDS: FOLIC ACID 1 MG TAB PO SCH (07:48)
[2022-02-13] MEDS ORDERED: CYANOCOBALAMIN (B-12) 100 MCG TABLET PO SCH (09:00)
[2022-02-13] MEDS ORDERED: IRON SUCROSE 300 MG in SODIUM CHLORIDE 0.9% 250 ML IV SCH (09:00)
--- NOTE | 2022-02-13 17:36 | Discharge Summary ---
Date of Service February 13, 2022 Admission HPI Per Admitting Provider Cee Amaro is a 36-year-old female scented with the ER for lightheadedness with progressive weakness and fatigue since 08/2019. [place] lightheaded this morning and nearly passed out, slid down the wall and lowered her self to the ground but did not pass out completely and did not hit her head/neck. Patient Seen/HPI performed in room with Rajendra Herrera PA-C present Intermittent heavy periods alternating with light periods. Heme negative. 3-4, 4-6 drinks daily. [place] lightheaded this morning and passed out slowly in the shower. [place] poor since covid in august and slowly worsening since then. Today was the first day that she actually passed out completely. Fatigue is worsened with exertion and small amounts of activity such as taking a shower and going up stairs have been ahrd lately and 'arms and legs feel like cement, and get a little lightheaded/dizzy with some shortness of breath' which improved with sitting down and rest. Endorses some anxiety which also gives her some feeling of difficulty breathing in the past. Today is the first time she passed out. [place] like her vision faded and went white. She slid down the wall, did not go completely out but could see and was so weak she had to slide down to the floor. No shaking, tensing, or 'seizure' like contractions, but did feel very shakey overall after and had a mild headache with some nausea. No vomiting. Denies fevers, chills, sweats, chest pain, chest pressure, abdominal pain, pain with urination, no blood in urine/stool, no dark black stool/melena. Eating normally. - Started a Vegan diet in the last week, rotates in for a month or two every few months out of the year. Prior to that did eat red meat, chicken, and fish. Menstrual periods: last 3 weeks ago. Was actually fairly light. Since young alternates between heavy and light. usually last 4-5 days. Does not take chronic/prescription medications .Denies DM. Had iron studies which were normal 2 years ago. No vitamin supplements. House is >100 years old. [place] is fairly recent. with no symptoms. Not sure if any problems with lead, but does not think so No tobacco, no vaping use EtoH daily, 2-3 drinks 'high noons'. Used to drink shots but has cut back in the last few months. no EtoH over the past weekend. No shakes/chills/withdrawal sx Last well woman many years ago. no fibroids. Physical exam: Obvious pallor is present. Mild tachypnea with systolic murmur. CTA B. No lower extremity edema. No abdominal tenderness. CODE STATUS: Full Code. Surrogate DM Humberto Fox [phone]. Plan: Shortness of breath/weakness/presyncope 2/2 severe symptomatic anemia Hemoglobin on admission 3.3. Patient compensated, historically sounds like gradual downtrend. Does have alternating heavy menstrual periods, but these have not changed in the last decade. No bleeding in between menstrual periods. Last menstrual period 3 weeks ago and was a normal/light 1. Periods usually last 4 to 5 days and have not changed recently. Occult blood negative, no GI bleeding/melena on patient history Patient does alternate a couple months out of the year with a vegan diet. Iron studies 2 years ago reportedly normal House is over 100 years old, no known pealing/CHP leg pain or exposure, lives in house with her and has not had symptoms Lead level pending, iron level pending - peripheral smear pending to evaluate for basophilic stippling given old house/paint and lead will be a send out and take some time to return Transfused 4 units PRBCs for profound anemia. After 2 units give 20 of Lasix, 1 g calcium gluconate. Follow for fluid overload as chronic process and patient is compensated Systolic murmur present, echo pending. Suspect nonvalvular turbulent/low viscosity flow murmur Troponin normal, EKG without acute ST segment change Creatinine normal, 0.86 on admission B12, folate levels pending Daily alcohol intake: Patient reports 34 drinks per day, last intake was Friday (3 days ago). Reports has had consecutive alcohol free days with no shakes, diaphoresis, tremors, withdrawal symptoms. Does not feel any symptoms of withdrawal. Will observe cautiously at this point, if diaphoresis/tremors or other signs of alcohol withdrawal develop initiate it AWSS protocol, will defer active protocol at this time Denies other chronic medical problems, no chronic medications, no medication allergies Principal Diagnosis symptomatic anemia iron deficiency anemia Discharge Exam The patient appeared stable Vital signs as documented. Lungs are clear to auscultation and appear unlabored Cardiac exam, Rhythm is regular.. No murmurs, rubs or gallops. Abdominal exam reveals normal bowel sounds, soft non tender, no masses Extremities are nonedematous and both pedal pulses are normal. Neurologic exam is alert and oriented, no focal loss of strength or sensation Skin is without bruises or rashes Psychologically is without concerns for anxiety or depression. Discharge Data Allergies Allergy/AdvReac Type Severity Reaction Status Date / Time No Known Allergies Allergy Unverified 02/11/22 11:10 Consultations 02/11/22 10:36 ED Decision to Admit Stat Hospital Course (1) Anemia: Severe symptomatic anemia, acute on chronic due to iron deficiency Admitting hemoglobin 3.3 4 u PRBC appropriate rise to 8.4, now stable Iron studies with undetectable iron, profound iron depletion. Patient has some mildly heavy periods, but these are regular last 3 to 5 days and she has no bleeding/spotting in between periods. She eats a vegan diet several months out of the year. No GI bleeding Appropriate rise with blood, received Venofer 700mg . After this continue oral iron q. OD, vitamins will arrange for pcp and then possible gyne referral Did receive Lasix and calcium gluconate after second unit of RBCs, no signs of volume overload (2) Generalized weakness: improved with blood transfusion (3) Alcohol abuse: -States she normally drinks about 3-4 cans of High Noon (alcoholic [place]) daily, last drink was 02/08/22 -No signs of alcohol withdrawal (4) Murmur: Noted on admission, improved following blood transfusion. Suspect low viscosity flow murmur. Echo with normal LV SF and no valvular disease -secondary to severe anemia, troponin negative, no chest pain, and no ECG changes noted (5) B12 deficiency: B12 is low on admission 152 (180 is low normal) recommend vitamin at time of discharge (6) Iron deficiency anemia: Total Time Total Time Spent Total Time Spent (In Minutes): It required greater than 30 minutes to prepare this patient for discharge Discharge Plan Discharge Items Patient Disposition: Home - Self-Care Reason For Visit: WEAKNESS Discharge Diagnosis: symptomatic anemia iron deficeincy anemia menorrhagia Activity: Resume your previous activity Non-emergency contact: Primary Care Provider Call non-emergency contact if: your symptoms worsen Follow-up/Referrals: Rajendra PALOMINO [Other] - 02/21/22 10:00 am (2 week hospital D/C follow up and establish care provider per Dr. Emanuel) Diet: Regular Addtl Attending Provider Instructions: please take your iron supplements every other day in addition to an iron friendly diet, you may use over the counter iron at around 325 mg every other day and consider also taking a vitamin. please follow up with your primary care to recheck your blood work and iron levels and consider a referral to ob gyne for your heavy periods keep yourself well hydrated Pending Studies at Discharge: No Stand-Alone Forms: My [facility] [place], Smoking Cessation Medications and DC Order Prescriptions: New ferrous sulfate [iron] 325 mg (65 mg iron) tablet 325 mg PO Q OTHER DAY Qty: 30 2RF Discharge Orders: Discharge Order (Routine); Ordered 02/13/22 Ordered By: Colt Emanuel Admission Data Admit Date/Time: 02/11/22 11:00 Attending Provider: Colt Emanuel Admit Provider: Dale Jackson Primary Care Provider: PCP,NO Other Providers: Dale Jackson Other Interventions: Discharge Summary Assessment (RN) Last Done: 02/13/22 14:47 Coding Level of Care Code D/C DAY MANAGEMENT >30 MINS Diagnoses Anemia D64.9 Generalized weakness R53.1 Alcohol abuse F10.10 Murmur R01.1 B12 deficiency E53.8 Iron deficiency anemia D50.9
== END 2022-02-13 15:48 | disposition home or self-care (01) | DRG 812 ==
LOC: ED 08:13 → SUATTDRO 11:00 → 2E 11:00
DX: D50.9 Iron deficiency anemia, unspecified; R01.1 Cardiac murmur, unspecified; F10.10 Alcohol abuse, uncomplicated; E53.8 Deficiency of other specified B group vitamins; N92.0 Excessive and frequent menstruation with regular cycle